=== PATIENT | female | born 1995 | race Caucasian/White ===

== ENCOUNTER 2017-03-29 18:16 | Outpatient (CLI) | payer SELFPAY | END 2017-03-29 18:17 | disposition critical access hospital (66) | LOC: EMS 18:16 | PROVIDERS: ATTEND Surgery | DX: R45.851 Suicidal ideations (principal) | CPT/HCPCS: A0425; A0429 ==

== ENCOUNTER 2017-03-29 18:35 | Emergency (ER) | payer SELFPAY ==
[2017-03-29 18:52] VITALS: BP 116/79
--- NOTE | 2017-03-29 18:53 | ED Physician Documentation ---
PD HPI MHE - Stated complaint Stated Complaint: SI - History obtained from History obtained from: Patient - History of Present Illness Primary symptom: Other (She presents with suicidal ideation because her boyfriend left her. She was at [facility] in the next day appointment was arranged to [facility] for yesterday which she missed it is not answering phone calls from [facility]. She has been trying to drink NyQuil in an effort to hurt herself.) Review of Systems Ten Systems: 10 systems reviewed and negative Constitutional: reports: Reviewed and negative Throat: reports: Reviewed and negative Cardiac: reports: Reviewed and negative Respiratory: reports: Reviewed and negative PD PAST MEDICAL HISTORY - Past Medical History Past Medical History: No - Present Medications Home Medications: Ambulatory Orders Medication Instructions Recorded Confirmed No Known Home Medications [No 03/29/17 03/29/17 Known Home Medications] - Allergies Allergies/Adverse Reactions: Allergies Allergy/AdvReac Type Severity Reaction Status Date / Time No Known Drug Allergies Allergy Verified 03/29/17 18:52 - Living Situation Living Arrangement: reports: At home - Social History Does the pt drink ETOH?: No Does the pt have substance abuse?: No - Family History Family history: reports: Non contributory PD ED PE NORMAL - Vitals Vital signs reviewed: Yes - General General: Alert and oriented X 3, No acute distress - HEENT HEENT: PERRL, EOMI - Neck Neck: Supple, no meningeal sign, No bony TTP - Cardiac Cardiac: RRR, No murmur - Respiratory Respiratory: No respiratory distress, Clear bilaterally - Abdomen Abdomen: Soft, Non tender - Back Back: No CVA TTP, No spinal TTP - Derm Derm: Normal color, Warm and dry - Extremities Extremities: No edema, No calf tenderness / cord - Neuro Neuro: Alert and oriented X 3, mine engineering manager 2-12 intact, Normal speech - Psych Psych: Other (Tearful, poor eye contact) Results - Vitals Vitals: Vital Signs - 24 hr 03/29/17 18:43 Temperature 37.1 C Heart Rate 91 Respiratory 20 Rate Blood Pressure 116/79 O2 Saturation 99 Oxygen O2 Source Room air - Labs Labs: Laboratory Tests 03/29/17 03/29/17 03/29/17 19:09 19:09 19:15 WBC 3.7 L RBC 4.57 Hgb 13.8 Hct 41.5 MCV 90.9 MCH 30.2 MCHC 33.3 RDW 13.2 Plt Count 251 MPV 9.1 Neut # 1.8 Lymph # 1.6 Jennings # 0.2 Eos # 0.1 Baso # 0.0 Absolute Nucleated RBC 0.00 Nucleated RBCs 0.1 Sodium 139 Potassium 3.5 Chloride 105 Carbon Dioxide 28 Anion Gap 6.0 BUN 11 Creatinine 0.7 Estimated GFR (MDRD) 107 Glucose 100 Calcium 9.3 Total Bilirubin 0.2 AST 18 ALT 15 Alkaline Phosphatase 83 Total Protein 7.8 Albumin 4.3 Globulin 3.5 Albumin/Globulin Ratio 1.2 Lipase 15 L Urine Color Urine Clarity Urine pH Ur Specific [place] Urine Protein Urine Glucose (UA) Urine Ketones Urine Occult Blood Urine Nitrite Urine Bilirubin Urine Urobilinogen Ur Leukocyte Esterase Ur Microscopic Review Urine Culture Comments Urine HCG, Qual Urine Opiates Screen NEGATIVE Ur Oxycodone Screen NEGATIVE Urine Methadone Screen NEGATIVE Ur Propoxyphene Screen NEGATIVE Ur Barbiturates Screen NEGATIVE Ur Tricyclics Screen NEGATIVE Ur Phencyclidine Scrn NEGATIVE Ur Amphetamine Screen NEGATIVE U Methamphetamines Scrn NEGATIVE U Benzodiazepines Scrn NEGATIVE Urine Cocaine Screen NEGATIVE U Cannabinoids Screen POSITIVE H 03/29/17 19:15 WBC RBC Hgb Hct MCV MCH MCHC RDW Plt Count MPV Neut # Lymph # Jennings # Eos # Baso # Absolute Nucleated RBC Nucleated RBCs Sodium Potassium Chloride Carbon Dioxide Anion Gap BUN Creatinine Estimated GFR (MDRD) Glucose Calcium Total Bilirubin AST ALT Alkaline Phosphatase Total Protein Albumin Globulin Albumin/Globulin Ratio Lipase Urine Color YELLOW Urine Clarity CLEAR Urine pH 6.0 Ur Specific [place] 1.025 Urine Protein NEGATIVE Urine Glucose (UA) NEGATIVE Urine Ketones NEGATIVE Urine Occult Blood NEGATIVE Urine Nitrite NEGATIVE Urine Bilirubin NEGATIVE Urine Urobilinogen 1 (NORMAL) Ur Leukocyte Esterase NEGATIVE Ur Microscopic Review NOT INDICATED Urine Culture Comments NOT INDICATED Urine HCG, Qual NEGATIVE Urine Opiates Screen Ur Oxycodone Screen Urine Methadone Screen Ur Propoxyphene Screen Ur Barbiturates Screen Ur Tricyclics Screen Ur Phencyclidine Scrn Ur Amphetamine Screen U Methamphetamines Scrn U Benzodiazepines Scrn Urine Cocaine Screen U Cannabinoids Screen PD MEDICAL DECISION MAKING - ED course ED course: She was brought in as a voluntary for mental health treatments and for a while she seemed willing to stay for that, however during the course of workup she eloped without completing medical treatment. Departure - Departure Disposition: 07 Against Medical Advice Clinical Impression: Depression Qualifiers: Depression Type: major depressive disorder Major depression recurrence: recurrent Active/Remission status: currently active Major depression episode severity: moderate Qualified Code(s): F33.1 - Major depressive disorder, recurrent, moderate
[2017-03-29 19:26] LABS: ALBUMIN/GLOBULIN RATIO 1.2 (1.0-2.2); BILIRUBIN,TOTAL 0.2 mg/dL (0.2-1.0); CALCIUM 9.3 mg/dL (8.5-10.3); CREATININE 0.7 mg/dL (0.4-1.0); POTASSIUM 3.5 mmol/L (3.5-5.0); TOTAL PROTEIN 7.8 g/dL (6.7-8.2)
[2017-03-29 19:31] LABS: BASOPHILS % (AUTO) 0.7 %; EOSINOPHILS # (AUTO) 0.1 10^3/uL (0.0-0.7); EOSINOPHILS % (AUTO) 1.7 %; HCT - HEMATOCRIT 41.5 % (37.0-47.0); HGB - HEMOGLOBIN 13.8 g/dL (12.0-16.0); LYMPHOCYTES # (AUTO) 1.6 10^3/uL (1.5-3.5); MEAN CORPUSCULAR HEMOGLOBIN 30.2 pg (27.0-31.0); MEAN CORPUSCULAR HGB CONC 33.3 g/dL (32.0-36.0); MEAN CORPUSCULAR VOLUME 90.9 fL (81.0-99.0); MEAN PLATELET VOLUME 9.1 fL (7.9-10.8); MONOCYTES # (AUTO) 0.2 10^3/uL (0.0-1.0); MONOCYTES % (AUTO) 6.6 %; NEUTROPHILS # (AUTO) 1.8 10^3/uL (1.5-6.6); NUCLEATED RED BLOOD CELLS AUTO 0.1 /100WBC; RED BLOOD COUNT 4.57 10^6/uL (4.20-5.40); RED CELL DISTRIBUTION WIDTH 13.2 % (12.0-15.0); UNCORRECTED WHITE BLOOD COUNT 3.7 x10^3/uL; WHITE BLOOD COUNT 3.7 x10^3/uL (4.8-10.8)
[2017-03-29 19:35] LABS: BILIRUBIN,URINE NEGATIVE (NEGATIVE); HCG UR QUAL NEGATIVE; UA CHARGE (STRIP ONLY) YES; UR CULTURE IF IND NOT INDICATED
[2017-03-29 20:13] LABS: PLATELET ESTIMATE, MANUAL NORMAL (130-450,000) (NORMAL); PLATELET MORPHOLOGY 1+ GIANT PLATELETS (NORMAL)
== END 2017-03-29 19:40 | disposition left against medical advice (07) ==
LOC: ED 18:35
DX: F32.9 Major depressive disorder, single episode, unspecified (principal); R45.851 Suicidal ideations
CPT/HCPCS: 36415; 80053; 80306; 81001; 81003; 81025; 83690; 85025; 87086; 99283; 99284

== ENCOUNTER 2017-03-29 21:05 | Emergency (ER) | payer SELFPAY ==
[2017-03-29 21:22] VITALS: BP 119/85
--- NOTE | 2017-03-29 21:28 | ED Physician Documentation ---
PD HPI MHE - Stated complaint Stated Complaint: SI - Chief complaint Chief Complaint: MHE - History obtained from History obtained from: Patient, Police - History of Present Illness Primary symptom: Suicidal ideation, Depression Timing - onset: How many weeks ago (few) Contributing factors: Other (no particular recent bad event. Has had some depression in the past. No meds nor regular counseling.). No: Substance abuse - ETOH, Substance abuse - drugs Recently seen: Emergency Dept (seen earlier today and left during assessment. She says she felt she was doing better and process taking long. She went down street toward [facility] and saw police cars, so stopped to get a ride. She explained where she was coming from and [facility] brought her back here for evaluation. Patient also seen at [facility] ED 2 days ago and given appt at [facility] for yesterday. She did not make that. When I ask her about it now, she says she misunderstood the instructions and was not aware of the date and time for the appt.) Review of Systems Constitutional: denies: Fever Nose: denies: Rhinorrhea / runny nose, Congestion Throat: denies: Sore throat Respiratory: denies: Cough GI: denies: Vomiting, Diarrhea Skin: denies: Abrasion (s), Laceration (s) Neurologic: denies: Altered mental status, Headache Psychiatric: reports: Depressed, Suicidal (ideation but she denies specific plan to me). denies: Hallucinations, Delusions, Insomnia Endocrine: denies: Weight loss PD PAST MEDICAL HISTORY - Past Medical History Cardiovascular: None Respiratory: None Neuro: None Endocrine/Autoimmune: None Psych: Depression - Past Surgical History Past Surgical History: No - Present Medications Home Medications: Ambulatory Orders Medication Instructions Recorded Confirmed No Known Home Medications [No 03/29/17 03/29/17 Known Home Medications] - Allergies Allergies/Adverse Reactions: Allergies Allergy/AdvReac Type Severity Reaction Status Date / Time No Known Drug Allergies Allergy Verified 03/29/17 18:52 - Social History Does the pt smoke?: No Smoking Status: Never smoker Does the pt drink ETOH?: No Does the pt have substance abuse?: No - Immunizations Immunizations are current?: Yes PD ED PE NORMAL - Vitals Vital signs reviewed: Yes - General General: Alert and oriented X 3, No acute distress, Well developed/nourished - Neck Neck: Supple, no meningeal sign, No adenopathy - Cardiac Cardiac: RRR, No murmur - Respiratory Respiratory: Clear bilaterally - Derm Derm: Normal color, Warm and dry - Extremities Extremities: No tenderness to palpate (no noted injuries of arms) - Neuro Neuro: Alert and oriented X 3, No motor deficit, Normal speech - Psych Psych: Normal affect. No: Normal mood (slightly sad but conversant) Results - Vitals Vitals: Vital Signs - 24 hr 03/29/17 21:21 Temperature 37 C Heart Rate 80 Respiratory 18 Rate Blood Pressure 119/85 H O2 Saturation 99 Oxygen O2 Source Room air PD MEDICAL DECISION MAKING - ED course Complexity details: reviewed old records (had labs from just few hours ago, did not see need to repeat those. ), considered differential (she denies particular plan at this time and does verbally contract for safety. She wants to get counseling and says she will show to appt tomorrow. She says she got confused on instructions from [facility] and thus missed her appt yesterday. Nurse talked with JESSENIA, who talked with patient and arranged another next day appt for tomorrow at 10 AM. Patient had friend come to ED to pick her up. ), d/w patient , d/w sales and service consultant (Talked with JESSENIA and informal discussion with [facility] in ED, who thought next day appt would be good based on my description. ) Departure - Departure Disposition: 01 Home, Self Care Clinical Impression: Suicidal ideation Depression Qualifiers: Depression Type: unspecified Qualified Code(s): F32.9 - Major depressive disorder, single episode, unspecified Condition: Stable Record reviewed to determine appropriate education?: Yes Instructions: ED Depression Follow-Up: [facility] [Provider Group] Comments: Rest and no extra medications tonight. Please no self-harm. You have an appt for 10 am at [facility] tomorrow morning. Please attend that appointment to start with some counseling and help with your depression. Discharge Date/Time: 03/29/17 22:26
== END 2017-03-29 22:26 | disposition home or self-care (01) ==
LOC: ED 21:05
DX: F32.9 Major depressive disorder, single episode, unspecified (principal); R45.851 Suicidal ideations
CPT/HCPCS: 99283

== ENCOUNTER 2017-04-01 14:59 | Outpatient (CLI) | payer SELFPAY | END 2017-04-01 15:00 | disposition home or self-care (01) | LOC: EMS 14:59 | PROVIDERS: ATTEND Surgery | DX: R45.851 Suicidal ideations (principal) | CPT/HCPCS: A0425; A0429 ==